=== PATIENT | male | born 1990 | race Caucasian/White ===

== ENCOUNTER 2016-03-10 23:26 | Emergency (ER) | payer SELFPAY ==
[2016-03-11] MEDS ORDERED: LIDOCAINE/EPI 1% MDV 20 ML ONE (01:12)
== END 2016-03-11 03:49 | disposition home or self-care (01) ==
LOC: ER 23:26
DX: F32.9 Major depressive disorder, single episode, unspecified (principal); S61.512A Laceration without foreign body of left wrist, initial encounter; X78.9XXA Intentional self-harm by unspecified sharp object, initial encounter
CPT/HCPCS: 36415; 80053; 80307; 80320; 80329; 81001; 84439; 84443; 85025; 85610